=== PATIENT | female | born 1990 | race African-American/Black ===

== ENCOUNTER 2016-04-10 12:41 | Emergency (ER) | payer OTHER, MEDICAID ==
[2016-04-10 13:05] VITALS: TEMP 98.9; BMI 34.0
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
[2016-04-10 13:58] VITALS: BP 133/83; PULSE 70
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
== END 2016-04-10 14:21 | disposition home or self-care (01) ==
LOC: ED 12:41 → EDMC 14:21
DX: M25.561 Pain in right knee (principal); M54.5 Low back pain
CPT/HCPCS: 72110; 99283